=== PATIENT | female | born 1965 | race African-American/Black ===

== ENCOUNTER 2019-09-30 07:35 | Emergency (ER) | payer BC ==
[2019-09-30] MEDS ORDERED: Ketorolac Tromethamine 30 MG/ML VIAL ONE (08:20)
[2019-09-30] MEDS ORDERED: Acetaminophen 500 MG TAB ONE (08:20)
[2019-09-30 08:36] LABS: #Eosinphils 0.2 thou/uL (0.0-0.7); #Lymphocytes 2.7 thou/uL (1.20-3.40); #Monocytes 0.9 thou/uL (0.11-0.59); #Neutrophils 8.9 thou/uL (1.40-6.50); %Basophils 0.3 % (0.0-1.0); %Eosinophils 1.6 % (0.0-10.0); %Lymphocytes 21.3 % (21.0-51.0); %Monocytes 7.3 % (0.0-10.0); %Neutrophils 69.6 % (42.0-75.0); Hemoglobin 12.5 g/dL (12.0-16.0); Mean Corpuscular HGB CONC 32.5 g/dL (32.0-36.0); Mean Corpuscular Hemoglobin 25.2 pg (27.0-31.0); Mean Corpuscular Volume 77.6 fL (78.0-98.0); Mean Platelet Volume 11.4 fL (7.4-10.4); Platelet Count 223 thou/uL (130-400); RBC Distribution Width 14.1 % (11.5-14.5); Red Blood Cell (RBC) Count 4.97 mill/uL (4.20-5.40); White Blood Cell (WBC) Count 12.8 thou/uL (4.8-10.8)
[2019-09-30 08:55] LABS: Anion Gap 12 mmol/L (10-20); BUN (Urea Nitrogen) 9 mg/dL (9.8-20.1); Calc. Creatinine Clearance 0 mL/min (70-130); Calcium 9.3 mg/dL (7.8-10.44); Carbon Dioxide 26 mmol/L (22-29); Chloride 105 mmol/L (98-107); Estimated GFR-MDRD 83; Glucose 80 mg/dL (70-105); Potassium 3.6 mmol/L (3.5-5.1); Sodium 139 mmol/L (136-145)
--- NOTE | 2019-09-30 09:23 | RAD ---
LEFT HIP 2 VIEWS: Date: 09/30/2019 HISTORY: Left hip pain. FINDINGS/IMPRESSION: Degenerative changes are present. No fracture, dislocation, or bony destruction identified. POS: [facility]
--- NOTE | 2019-09-30 09:57 | CT ---
EXAM: CT Lower Ext Lt W Con DATE: 09/30/2019 8:50 AM INDICATION: Left hip pain COMPARISON: Left hip radiograph dated September 30, 2019 FINDING: No acute fracture is evident. No large joint effusion is grossly evident. No enlarged lymph nodes are evident. There are bilateral tubal ligation clips. 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 IMPRESSION:No acute fracture. No large joint effusion is grossly evident. Moderate left SI joint oste oarthrosis. Mild left hip osteoarthrosis.
[2019-09-30] MEDS ORDERED: Iopamidol 370 76% 100 ML VIAL ONE (14:26)
== END 2019-09-30 10:39 | disposition home or self-care (01) ==
LOC: ERS 07:35
DX: M16.12 Unilateral primary osteoarthritis, left hip (principal); I10 Essential (primary) hypertension; E11.9 Type 2 diabetes mellitus without complications; Z79.4 Long term (current) use of insulin; Z79.899 Other long term (current) drug therapy
CPT/HCPCS: 36415; 80048; 85025; 85652; 86140; 96372; J1885; Q9967

== ENCOUNTER 2021-08-02 14:14 | Emergency (ER) | payer OTHER, BC ==
[2021-08-02] MEDS ORDERED: HYDROcodone/Acetaminophen 10/325 mg Tablet ONE (16:19)
== END 2021-08-02 16:28 | disposition home or self-care (01) ==
LOC: ERS 14:14
DX: S46.912A Strain of unspecified muscle, fascia and tendon at shoulder and upper arm level, left arm, initial encounter (principal); S40.012A Contusion of left shoulder, initial encounter; S80.12XA Contusion of left lower leg, initial encounter; I10 Essential (primary) hypertension; E11.9 Type 2 diabetes mellitus without complications; M10.9 Gout, unspecified; V89.2XXA Person injured in unspecified motor-vehicle accident, traffic, initial encounter
CPT/HCPCS: 99283